=== PATIENT | male | born 1975 | race Caucasian/White ===

== ENCOUNTER 2016-10-25 18:45 | Emergency (ER) | payer SELFPAY ==
[2016-10-25] MEDS ORDERED: ASPIRIN 325 MG TABLET ONE (20:03)
[2016-10-25] MEDS ORDERED: INSULIN SINGLE DOSE, ER SQ-INSULIN ONE (20:03)
== END 2016-10-25 19:39 ==
LOC: ED 18:53
DX: R73.9 Hyperglycemia, unspecified (principal)